=== PATIENT | male | born 1990 | race Caucasian/White ===

== ENCOUNTER → 2019-06-28 16:37 | Outpatient (BNVA) | payer OTHER, SELFPAY | PROVIDERS: Family Provider Family Medicine; PCP Family Medicine; Visit Provider Family Medicine | DX: J02.9 Acute pharyngitis, unspecified (principal); J01.90 Acute sinusitis, unspecified; H66.001 Acute suppurative otitis media without spontaneous rupture of ear drum, right ear | CPT/HCPCS: 87081; 87880 ==

== ENCOUNTER → 2019-07-18 10:08 | Outpatient (BNVA) | payer OTHER, SELFPAY | PROVIDERS: Family Provider Family Medicine; PCP Family Medicine; Referring Provider Family Medicine; Visit Provider Family Medicine | DX: M60.9 Myositis, unspecified (principal); M60.059 Infective myositis, unspecified thigh; Z86.19 Personal history of other infectious and parasitic diseases | CPT/HCPCS: 80053; 82550; 85025; 85651; 86757 ==

== ENCOUNTER → 2019-08-06 15:28 | Outpatient (BNVA) | payer OTHER, SELFPAY | PROVIDERS: Family Provider Family Medicine; PCP Family Medicine; Visit Provider Family Medicine | DX: R53.83 Other fatigue (principal); M75.52 Bursitis of left shoulder; G70.9 Myoneural disorder, unspecified; E05.90 Thyrotoxicosis, unspecified without thyrotoxic crisis or storm; E53.8 Deficiency of other specified B group vitamins; E55.9 Vitamin D deficiency, unspecified; Q20.6 Isomerism of atrial appendages; Z86.19 Personal history of other infectious and parasitic diseases | CPT/HCPCS: 82085; 82607; 82652; 83519; 84403; 84436; 84443; 86140 ==

== ENCOUNTER 2019-10-17 11:23 | Outpatient (RCR) | payer OTHER, SELFPAY | END 2019-10-28 23:59 | disposition home or self-care (01) | LOC: SPT 11:23 | PROVIDERS: PCP Family Medicine; Referring Provider Family Medicine; Visit Provider Family Medicine | DX: M54.5 Low back pain (principal) | CPT/HCPCS: 97161 ==